=== PATIENT | female | born 1975 | race Caucasian/White ===

== ENCOUNTER 2017-01-06 08:36 | Day surgery (SDC) | payer BC ==
[~2017-01-06] VITALS: Ht 170.2 cm; Wt 54.4 kg
[~2017-01-06 08:36] MED LIST: ALEVE220 M2 PO; AMBIEN10 MG PO; CARVEDILOL3.125 MG PO; CYANOCOBALAM1000 MCG PO; ELIQUIS2.5 MG PO; FIORICET 50-301 EACH PO; IMODIUM MS REL1 EACH PO; LISINOPRIL5 MG PO; MIRTAZAPINE15 MG PO; MIRTAZAPINE7.5 MG PO; NEPHRO-VITE,1 TABLET PO; OXYCODONE HCL15 MG PO; PROTONIX40 MG PO; SEROQUEL100 MG PO; SOMA350 MG PO; TOPAMAX25 MG PO; TRAZODONE HCL100 MG PO; TRAZODONE HCL50 MG PO; TUMS500 MG PO; ZOFRAN4 MG PO; ZOLOFT50 MG PO
[2017-01-06 10:44] LABS: METH RESISTANT S AUREUS PCR NEGATIVE (NEGATIVE)
[2017-01-06 10:45] LABS: PROBE CHECK PASS; SPECIMEN PROCESSING CONTROL PASS
== END 2017-01-06 11:35 | disposition home or self-care (01) ==
LOC: CATH 08:36
PROVIDERS: Surgery
DX: T82.868A Thrombosis due to vascular prosthetic devices, implants and grafts, initial encounter (principal); Y83.2 Surgical operation with anastomosis, bypass or graft as the cause of abnormal reaction of the patient, or of later complication, without mention of misadventure at the time of the procedure; Z99.2 Dependence on renal dialysis; N18.6 End stage renal disease
CPT/HCPCS: 87641; C1725; C1757; C1769; C1874; C1894; C2628; J0690; J1644; J2250; J3010; S0020

== ENCOUNTER 2017-08-11 07:52 | Day surgery (SDC) | payer OTHER ==
[2017-08-11 11:49] LABS: METH RESISTANT S AUREUS PCR NEGATIVE (NEGATIVE)
[2017-08-11 11:59] LABS: PROBE CHECK PASS; SPECIMEN PROCESSING CONTROL PASS
== END 2017-08-11 10:54 | disposition home or self-care (01) ==
LOC: CATH 07:52
PROVIDERS: Surgery
DX: T82.858A Stenosis of other vascular prosthetic devices, implants and grafts, initial encounter (principal); I12.0 Hypertensive chronic kidney disease with stage 5 chronic kidney disease or end stage renal disease; N18.6 End stage renal disease; Z99.2 Dependence on renal dialysis; Z84.1 Family history of disorders of kidney and ureter
CPT/HCPCS: 87641; C1725; C1769; C1874; C1894; J1644; J2250; J3010

== ENCOUNTER 2018-02-14 15:33 | Day surgery (SDC) | payer OTHER ==
[~2018-02-14] VITALS: Ht 170.2 cm; Wt 57.0 kg
== END 2018-02-14 18:30 | disposition home or self-care (01) ==
LOC: CATH 15:33
DX: T82.858A Stenosis of other vascular prosthetic devices, implants and grafts, initial encounter (principal); Y83.2 Surgical operation with anastomosis, bypass or graft as the cause of abnormal reaction of the patient, or of later complication, without mention of misadventure at the time of the procedure; I12.0 Hypertensive chronic kidney disease with stage 5 chronic kidney disease or end stage renal disease; N18.6 End stage renal disease; Z99.2 Dependence on renal dialysis; Z79.01 Long term (current) use of anticoagulants; Z90.5 Acquired absence of kidney; Z82.49 Family history of ischemic heart disease and other diseases of the circulatory system; Z84.1 Family history of disorders of kidney and ureter; Z82.3 Family history of stroke; Z83.79 Family history of other diseases of the digestive system; Z88.6 Allergy status to analgesic agent
CPT/HCPCS: 87641; C1725; C1769; C1894; J1644; J2250